=== PATIENT | female | born 1960 | race Hispanic/Latino ===

== ENCOUNTER → 2025-04-20 | Outpatient (CLI) | payer OTHER, MEDICAID | END | disposition home or self-care (01) | LOC: RAH 10:18 | PROVIDERS: ATTEND Family Medicine | DX: Z12.31 Encounter for screening mammogram for malignant neoplasm of breast (principal) | CPT/HCPCS: 77067 ==

== ENCOUNTER → 2025-07-09 | Outpatient (CLI) | payer OTHER, MEDICAID ==
--- NOTE | 2025-07-12 10:40 | HMCIMG ---
Left BREAST ULTRASOUND: Follow-up for mammogram from 07/09/2025 which demonstrated a small density in left breast upper-outer quadrant. Finding: Real-time examination of the [right/left] breast demonstrates homogeneous echotexture throughout the breast without evidence of focal solid or cystic masses. In the area of concern at left breast at 1:00 there is a small intramammary lymph node measuring 0.4 x 0.3 x 0.4 cm. There is also a left axillary lymph nodes the largest measuring 1.5 x 0.6 x 1.2 cm. The smaller one measuring 0.5 x 0.5 x 0.5 cm. IMPRESSION: There are concern appears to be a small intramammary lymph node there is no hypoechoic lesion or cyst seen.. FINAL ASSESSMENT: ACR: BI-RAD- 2. Benign: Also a negative assessment; finding(s) benign abnormalities. Management: Routine mammography screening. Likelihood of Cancer: Essentially 0% likelihood of malignancy.
--- NOTE | 2025-07-12 10:42 | HMCIMG ---
DIGITAL left breast DIAGNOSTIC MAMMOGRAM Technique: The digital mammographic examination of left breast in craniocaudal, mediolateral oblique views along with CAD was obtained. History: This is a 65 years year-old female 12, para7 Ab5 . Patient has no family history of breast cancer. Patient has no complaint Reference:Prior mammogram from 04/20/2025 is available.. Breast composition: Breast composition B: There are scattered areas of fibroglandular density. Finding: The digital mammographic examination of left breast in craniocaudal and mediolateral oblique view along with CAD demonstrates a small density seen at 1:00 which ultrasound demonstrate to be a intramammary lymph node. There is benign vascular calcification suggesting of atherosclerotic changes.. There is no evidence of any dendritic mass, cluster microcalcification or architectural distortion. The retromammary fat appears to be normal. IMPRESSION: Lesion seen on the prior mammogram and ultrasound demonstrate a small intramammary lymph node. NO RADIOGRAPHIC EVIDENCE OF MALIGNANT CHANGES. WE WOULD RECOMMEND ANNUAL FOLLOW UP WITH TOMOSYNTHESIS UNLESS OTHERWISE CLINICALLY INDICATED. FINAL ASSESSMENT: ACR: BI-RAD- 2. Benign: Also a negative assessment; finding(s) benign abnormalities. Management: Routine mammography screening. Likelihood of Cancer: Essentially 0% likelihood of malignancy. NOTE: IF A WORK-UP OF THIS PATIENT LEADS TO A BIOPSY, PLEASE FORWARD A COPY OF THE PATHOLOGY REPORT TO OUR OFFICE REQUIRED BY [employer] JULY 14, 1994. A NEGATIVE MAMMOGRAM SHOULD NOT PRECLUDE BIOPSY OF A CLINICALLY PALPABLE SUSPICIOUS MASS, 10% OF BREAST CANCERS ARE MAMMOGRAPHICALLY OCCULT. THIS MAMMOGRAPHY FACILITY IS FULLY ACCREDITED BY THE [employer]OD [employer] (FDA). THANK YOU FOR THIS REFERRAL.
== END | disposition home or self-care (01) ==
LOC: RAH 12:50
PROVIDERS: ATTEND Family Medicine
DX: R92.322 Mammographic fibroglandular density, left breast (principal); R92.2 Inconclusive mammogram; R59.0 Localized enlarged lymph nodes; N63.20 Unspecified lump in the left breast, unspecified quadrant
CPT/HCPCS: 76641; 77065